=== PATIENT | female | born 1940 | race Hispanic/Latino ===

== ENCOUNTER 2020-08-13 19:56 | Emergency (ER) | payer MEDICARE, OTHER ==
[~2020-08-13] VITALS: Ht 157.5 cm; Wt 95.3 kg
[2020-08-13 21:48] VITALS: BP 132/87
== END 2020-08-13 21:50 | disposition home or self-care (01) ==
LOC: ER 20:00
DX: K59.00 Constipation, unspecified (principal); R10.31 Right lower quadrant pain; I10 Essential (primary) hypertension; R91.8 Other nonspecific abnormal finding of lung field
CPT/HCPCS: 74176; 99283